=== PATIENT | female | born 1960 | race Caucasian/White ===

== ENCOUNTER 2022-03-03 10:56 | Outpatient (RCR) | payer OTHER, SELFPAY ==
[2022-03-03 11:53] LABS: Creatinine* 0.5 mg/dL (0.5-1.5); Est. Creatinine Clearance* 91.09; Estimated Glomerular Filt Rate 108 ml/min
== END 2022-08-30 23:59 | disposition home or self-care (01) ==
LOC: CCIC 10:56
PROVIDERS: Visit Provider Internal Medicine
DX: C34.90 Malignant neoplasm of unspecified part of unspecified bronchus or lung (principal)
CPT/HCPCS: 36415; 36591; 82565

== ENCOUNTER 2022-09-15 13:51 | Outpatient (CLI) | payer BC, SELFPAY | END 2022-09-15 13:52 | disposition home or self-care (01) | LOC: MRI 13:52 | PROVIDERS: PCP Internal Medicine; Visit Provider Internal Medicine | DX: C79.31 Secondary malignant neoplasm of brain (principal) | CPT/HCPCS: 70553; A9575 ==

== ENCOUNTER 2023-02-16 14:06 | Outpatient (CLI) | payer BC, SELFPAY ==
--- NOTE | 2023-02-16 14:37 | CRLHL7_ITS ---
For Patients: As a result of the Century Cures Act, medical imaging exams and procedure reports are released immediately into your electronic medical record. You may view this report before your referring provider. If you have questions, please contact your health care provider. INDICATION: Intracranial metastasis, follow-up. TECHNIQUE : Multisequence multiplanar MRI of the head before and following administration of 20 mL of gadolinium-based intravenous contrast. COMPARISON: MR brain dated 11/26/2022. FINDINGS: Previously referenced intracranial metastases as follows on axial postcontrast series 15: Slight decreasing conspicuity of residual linear enhancing focus in the left cerebral peduncle (image 96). Stable 4 mm enhancing lesion along the left superior cerebellar vermis (image 115). Resolution of previously described 2 mm and 3 mm enhancing lesions in the right occipital lobe (expected location images 109 111). A new 3 mm linear hyperintensity in the left mesial temporal lobe (series 15, image 105) is favored to be artifactual. Additionally, new 3 mm linear enhancement is noted along the right precentral sulcus (series 15, image 52). No evidence of acute ischemia. Scattered foci of T2/FLAIR hyperintensity in proximity to previously treated lesions. The ventricles are normal in caliber. Bone marrow signal intensity of the calvarium is within normal limits. Orbits are unremarkable in appearance. Paranasal sinuses and mastoid air cells are predominantly clear. IMPRESSION: 1. Stable or decreased conspicuity of the previously referenced intracranial metastases. 2. New 4 mm linear enhancing focus at the right precentral sulcus (series 15, image 52), indeterminate but potentially vascular in etiology. 3. 3 mm linear hyperintensity in the left mesial temporal lobe (series 15, image 105) is likely artifactual, but attention on follow-up is recommended. Dictated by Dave Tsai MD @ 02/17/2023 2:16:20 PM (Electronically Signed)
== END 2023-02-16 14:07 | disposition home or self-care (01) ==
LOC: MRI 14:06
PROVIDERS: Visit Provider Internal Medicine
DX: C79.31 Secondary malignant neoplasm of brain (principal)
CPT/HCPCS: 70553; A9575

== ENCOUNTER 2023-02-16 15:00 | Outpatient (RCR) | payer BC, SELFPAY ==
[2022-11-26] MEDS: HEPARIN 500 UNIT/5 ML SYRINGE IVF (10:30)
[2022-11-26] MEDS: SODIUM CHLORIDE 0.9 % (FLUSH) 10 ML SYRINGE IVF (10:30)
[2023-02-16] MEDS: HEPARIN 500 UNIT/5 ML SYRINGE IVF (15:42)
[2023-02-16] MEDS: SODIUM CHLORIDE 0.9 % (FLUSH) 10 ML SYRINGE IVF (15:42)
== END 2023-03-15 23:59 | disposition home or self-care (01) ==
LOC: CCIC 15:00
PROVIDERS: Visit Provider Internal Medicine
DX: C34.91 Malignant neoplasm of unspecified part of right bronchus or lung (principal); C79.31 Secondary malignant neoplasm of brain
CPT/HCPCS: 36591; 70553; 99211; A9575; J1642

== ENCOUNTER 2023-05-17 09:37 | Outpatient (CLI) | payer BC, SELFPAY ==
--- NOTE | 2023-05-17 10:15 | MR_ITS ---
Patient: JEANNE LAYNE Facility:?[facility] Patient ID:?[id number] Site Patient ID:?[id number]. Site :?[id number] Study:?MRI-Head WO/W DOTAREM 10ML-05/17/2023 11:45:54 AM Ordering Physician:VEDA Final Report: Indication: Follow-up brain metastases. Technique: Noncontrast sagittal T1, axial FLAIR, T2 turbo spine echo, and diffusion weighted images. Supplemental post contrast T1 weighted axial and coronal sequences are provided after administration of 10 mL Dotarem gadolinium-based IV contrast. Comparison: 02/16/2023 MRI Findings: The ventricles, sulci and gyri are normal size, shape and contour for age. The midline structures are centrally located with no evidence of shift. There are no suspicious intra or extra-axial fluid collections. No evidence of restricted diffusion to suggest acute ischemia. Stable scattered foci of punctate T2 prolongation in the cerebral white matter that are nonspecific. No pathologic susceptibility artifacts. Previously referenced intracranial metastases as follows on axial postcontrast series 15: - Complete resolution of the linear enhancing focus in the left cerebral peduncle (image 131). - Decreased size of enhancing lesion along the left superior cerebellar vermis, previously 4 mm (image 130). - No recurrent enhancement of previously described 2 mm and 3 mm enhancing lesions in the right occipital lobe. - No new or increased enhancement at the site of suspected enhancement in the left mesial temporal lobe, and right precentral sulcus (image 128 and 175, respectively), likely artifact. Expected flow voids in the cavernous carotids and basilar artery. No abnormal contrast enhancement involving the brain parenchyma, meninges, calvarium or skull base. Impression: 1. No evidence of acute intracranial abnormality. 2. Complete resolution of enhancement at the site of metastasis in the left cerebral peduncle. Decreased size of enhancing metastasis in the left superior vermis. No recurrent enhancement of occipital lobe metastases. 3. No new or increased enhancement at the site of suspected enhancement in the left mesial temporal lobe, and right precentral sulcus, likely artifact. Dictated by Lupillo Castelan MD @ 05/17/2023 1:34:07 PM Signed by:?Lupillo Castelan MD @05/17/2023 1:34:07 PM (Electronic Signature)
== END 2023-05-17 09:38 | disposition home or self-care (01) ==
LOC: MRI 09:38
PROVIDERS: Visit Provider Physician Assistant
DX: C79.31 Secondary malignant neoplasm of brain (principal)
CPT/HCPCS: 70553; 99211; A9575; J1642

== ENCOUNTER 2023-08-31 12:26 | Outpatient (CLI) | payer BC, SELFPAY ==
--- NOTE | 2023-08-31 13:00 | CRLHL7_ITS ---
For Patients: As a result of the Century Cures Act, medical imaging exams and procedure reports are released immediately into your electronic medical record. You may view this report before your referring provider. If you have questions, please contact your health care provider. Indication: SECONDARY MALIGNANT NEOPLASM BRAIN Technique: Noncontrast sagittal T1, axial FLAIR, T2 turbo spine echo, and diffusion weighted images. Supplemental post contrast T1 weighted axial and coronal sequences are provided after administration of 20 mL gadolinium-based IV contrast. Comparison: 05/17/2023 MRI Findings: There is no evidence of diffusion restriction to suggest acute ischemia. No mass effect or midline shift. No hydrocephalus. No acute intracranial hemorrhage. Multiple scattered foci of T2 prolongation in the supratentorial white matter are nonspecific but suggestive of chronic small vessel ischemic changes. Previously referenced intracranial metastases as follows on axial postcontrast series 15: -Stable 2 mm enhancing lesion along the left superior cerebellar vermis (image 106). -No recurrent enhancement of previously described 2 mm and 3 mm enhancing lesions in the right occipital lobe. -Stable prominent vascular structure along the right parietal rojas matter (series 15, image 58). Expected intracranial vascular flow voids are preserved. Impression : 1. No evidence of acute intracranial abnormality. 2. Stable small enhancing lesion in the left superior vermis compatible with treated metastasis. 3. No new metastatic lesions or evidence of progression of disease. 4. Mild chronic small-vessel ischemic changes. Dictated by Lupillo Castelan MD @ 09/01/2023 10:40:14 AM (Electronically Signed)
== END 2023-08-31 12:27 | disposition home or self-care (01) ==
LOC: MRI 12:27
PROVIDERS: Visit Provider Nurse Practitioner
DX: C79.31 Secondary malignant neoplasm of brain (principal)
CPT/HCPCS: 70553; A9575

== ENCOUNTER 2023-08-31 12:30 | Outpatient (RCR) | payer BC, SELFPAY ==
[2023-05-17] MEDS: SODIUM CHLORIDE 0.9 % (FLUSH) 10 ML SYRINGE IVF (11:22)
[2023-05-17] MEDS: HEPARIN 500 UNIT/5 ML SYRINGE IVF (11:22)
[2023-08-31] MEDS: HEPARIN 500 UNIT/5 ML SYRINGE IVF (14:17)
[2023-08-31] MEDS: SODIUM CHLORIDE 0.9 % (FLUSH) 10 ML SYRINGE IVF (14:18)
== END 2023-11-13 23:59 | disposition home or self-care (01) ==
LOC: CCIC 12:30
PROVIDERS: Visit Provider Internal Medicine
DX: C34.91 Malignant neoplasm of unspecified part of right bronchus or lung (principal); C79.31 Secondary malignant neoplasm of brain
CPT/HCPCS: 70553; 99211; A9575; J1642

== ENCOUNTER 2023-12-01 10:35 | Outpatient (RCR) | payer BC, SELFPAY ==
[2023-12-01] MEDS: HEPARIN 500 UNIT/5 ML SYRINGE IVF (12:31)
[2023-12-01] MEDS: SODIUM CHLORIDE 0.9 % (FLUSH) 10 ML SYRINGE IVF (12:31)
== END 2024-05-29 23:59 | disposition home or self-care (01) ==
LOC: CCIC 10:35
PROVIDERS: Visit Provider Internal Medicine
DX: C34.91 Malignant neoplasm of unspecified part of right bronchus or lung (principal); C79.31 Secondary malignant neoplasm of brain
CPT/HCPCS: 99211; J1642

== ENCOUNTER 2023-12-01 10:39 | Outpatient (CLI) | payer BC, SELFPAY ==
--- NOTE | 2023-12-01 11:15 | CRLHL7_ITS ---
For Patients: As a result of the Century Cures Act, medical imaging exams and procedure reports are released immediately into your electronic medical record. You may view this report before your referring provider. If you have questions, please contact your health care provider. Indication: Intracranial metastasis, follow-up. Technique: Multisequence multiplanar MRI of the brain prior to and following administration of 15 cc Dotarem gadolinium based intravenous contrast. Comparison: MRI brain dated 08/31/2023. Findings: Stable focus of 2 mm nodular enhancement within the superior cerebellar vermis (series 1036, image 114). No recurrent or residual enhancement at the site of previously referenced lesions in the left cerebral peduncle and right occipital lobe. No focus of new suspicious enhancement. No evidence of acute ischemia. Similar scattered foci of T2 prolongation within the supratentorial white matter. The ventricles are normal and unchanged in size. Flow voids of the larger intracranial arteries are preserved. No suspicious calvarial lesion. Unremarkable orbits. The paranasal sinuses and mastoid air cells are predominantly clear. Impression: 1. No acute intracranial abnormality. 2. Unchanged 2 mm nodular enhancing focus in the left superior cerebellar vermis compatible with treated metastasis. 3. No new suspicious enhancing lesion. Dictated by Dave Tsai MD @ 12/02/2023 10:51:59 AM (Electronically Signed)
== END 2023-12-01 10:40 | disposition home or self-care (01) ==
PROVIDERS: Visit Provider Nurse Practitioner
DX: C79.31 Secondary malignant neoplasm of brain (principal)
CPT/HCPCS: 70553; A9575